=== PATIENT | male | born 1975 | race Caucasian/White ===

== ENCOUNTER 2021-08-14 12:29 | Emergency (ER) | payer SELFPAY ==
[2021-08-14 13:55] LABS: CORONAVIRUS 2019 SARS-COV-2 NEGATIVE (NEGATIVE); INFLUENZA A NAA NEGATIVE (NEGATIVE)
== END 2021-08-14 16:20 | disposition home or self-care (01) ==
LOC: FER 12:29
PROVIDERS: Physician Assistant
DX: J06.9 Acute upper respiratory infection, unspecified (principal); I10 Essential (primary) hypertension; F17.200 Nicotine dependence, unspecified, uncomplicated; Z20.822 Contact with and (suspected) exposure to COVID-19; Z88.1 Allergy status to other antibiotic agents
CPT/HCPCS: 99283; U0002

== ENCOUNTER 2021-11-01 22:54 | Emergency (ER) | payer OTHER ==
[2021-11-02 01:41] LABS: EOSINOPHIL 0.2 % (0-5); HCT 42.9 % (42.0-52.0); LYMPHOCYTE 31.1 % (15-48); MCH 32.5 pg (25.0-31.0); MCV 93.1 fL (78.0-100.0); MPV 8.9 fL (6.0-9.5); NEUTROPHIL 60.5 % (41-80); NRBC 0; PLT 225 K/uL (150-400); RBC 4.61 M/uL (4.70-6.00); RDW 13.1 % (11.5-14.0); WBC 6.3 K/uL (4.0-10.5)
[2021-11-02 01:48] LABS: BUN/CREAT RATIO (CALC) 19.5 RATIO; CREATININE 0.87 mg/dL (0.67-1.17); POTASSIUM 4.1 mmol/L (3.5-5.1)
[2021-11-02 02:09] LABS: CORONAVIRUS 2019 SARS-COV-2 NEGATIVE (NEGATIVE); INFLUENZA A NAA NEGATIVE (NEGATIVE)
[2021-11-02] MEDS ORDERED: NAPROXEN500 MG PO (02:27)
[2021-11-02] MEDS ORDERED: MEDROL 4MG DOSEP4 MG PO (02:27)
[2021-11-02] MEDS ORDERED: AMOX TR-K CLV1 EAC4 PO (02:27)
[2021-11-02] MEDS ORDERED: NORCO 5-325 TA1 EACH PO (03:04)
== END 2021-11-02 03:07 | disposition home or self-care (01) ==
LOC: FER 22:54
PROVIDERS: Internal Medicine
DX: M54.41 Lumbago with sciatica, right side (principal); J01.90 Acute sinusitis, unspecified; I10 Essential (primary) hypertension; F17.210 Nicotine dependence, cigarettes, uncomplicated; Z20.822 Contact with and (suspected) exposure to COVID-19; Z88.1 Allergy status to other antibiotic agents
CPT/HCPCS: 36415; 72125; 72128; 72131; 80048; 85025; 87880; J2930; U0002

== ENCOUNTER 2022-03-15 00:42 | Emergency (ER) | payer SELFPAY ==
[~2022-03-15 00:42] MED LIST: ACETAMINOPHEN500 M1 PO; AMOX TR-K CLV1 EAC4 PO; AMOXICILLIN875 MG PO; CLONIDINE HCL0.2 MG PO; COZAAR50 MG PO; ELAVIL25 MG PO; HYSEPT473 ML EXT; MEDROL 4MG DOSEP4 MG PO; MIRTAZAPINE30 MG PO; NAPROSYN375 MG PO; NAPROXEN500 MG PO; NORCO 5-325 TA1 EACH PO; SEROQUEL 25MG T25 MG PO; TRILEPTAL150 MG PO; VIBRAMYCIN100 MG PO; ZYPREXA 5MG TABL5 MG PO
== END 2022-03-15 02:15 ==
LOC: FER 00:42
DX: F10.129 Alcohol abuse with intoxication, unspecified (principal); F17.200 Nicotine dependence, unspecified, uncomplicated; Z02.79 Encounter for issue of other medical certificate; Z88.1 Allergy status to other antibiotic agents; Y90.8 Blood alcohol level of 240 mg/100 ml or more
CPT/HCPCS: 36415; 99283; G0480